=== PATIENT | female | born 1995 | race Caucasian/White ===

== ENCOUNTER 2020-10-27 19:23 | Emergency (ER) | payer OTHER, SELFPAY ==
--- NOTE | ~2020-10-27 | XR_ITS ---
XR chest 2V DATE: 10/27/2020 19:48 INDICATION: Shortness of breath for 4 days. Asthma. 21 week gravid patient. TECHNIQUE: PA and lateral views COMPARISON: None FINDINGS: There is minimal patchy infiltrate or atelectasis in the lower lung zones. No pleural effusion or pulmonary vascular congestion or pneumothorax. Normal heart size. No hilar or mediastinal enlargement. IMPRESSION: Minimal infiltrate or atelectasis at the lung bases Reviewed, dictated and finalized at location A.
[2020-10-27 19:30] VITALS: BP 103/58; PULSE 105; RESP 20; TEMP 36.3; O2SAT 99
--- NOTE | 2020-10-27 19:35 | ED.URI ---
HPI - URI/Sore Throat General Chief Complaint: Upper Respiratory Infection Stated Complaint: Covid Symptoms Time Seen by Provider: 10/27/20 19:35 Source: patient and RN notes reviewed History of Present Illness HPI Narrative: Patient is a 25-year-old female who presents the urgent care with complaints of Covid-like symptoms. Patient states that she is pretty sure her boyfriend had Covid starting last Saturday with his loss of taste and smell. Patient states that all 3 of her kids if showed very mild symptoms for only 1 or 2 days. Patient states that she became symptomatic a week ago yesterday and has become increased short of breath. Patient is 21 weeks and was suggested by her OB to go to the urgent care for a chest x-ray. Patient states that she is asthmatic and does not feel that she is having a asthma-like attacks . Patient states that she has been fine at rest but does seem to get short of breath on exertion. Patient also reports of a lot of fatigue and intermittent vomiting. States that she is able to get down fluids but has had a decrease in appetite. States that she has been using Tylenol for her fevers. No other acute complaints. No acute distress noted. Patient read the plan of care. Some parts of this dictation were generated by voice recognition software and may contain typographical and/or grammatical inaccuracies. Related Data Home Medications Medication Instructions Recorded Confirmed vit no.[id number] 1 tablet PO DAILY 10/27/20 10/27/20 [Alive ] Allergies Allergy/AdvReac Type Severity Reaction Status Date / Time No Known Allergies Allergy Verified 10/27/20 20:01 Review of Systems Review of Systems: CONSTITUTIONAL: Reports of fever, chills, sweats, fatigue EYES: Denies visual changes, redness, or discharge. ENT: Denies rhinorrhea, congestion, sore throat, or otalgia. CARDIOVASCULAR: Denies chest pain, palpitations, or edema. RESPIRATORY: Reports of nonproductive cough all week and shortness of breath on exertion GASTROINTESTINAL: Reports of nausea and vomiting GENITOURINARY: Denies dysuria or hematuria. SKIN: Denies rash or itching. MUSCULOSKELETAL: Denies back pain, joint pain, or myalgia. NEUROLOGIC: Denies headache, numbness, or weakness. All other systems reviewed are negative, except as documented in HPI. PMFSH Comments At the time of my signature, I reviewed and agree with the nursing past medical, surgical, social, and family history. There is no relevant family history pertinent to the patient complaint. Exam Narrative: GENERAL: This is a well-nourished, well-developed patient, in no apparent distress. HEAD: normocephalic, atraumatic. EYES: PERRL. Sclera clear/white. Vision is grossly intact. EARS: External ears normal NOSE: External nose normal with no obvious nasal discharge, nares without redness, no rhinorrhea. THROAT: Mucous membranes moist NECK: Neck supple CARDIOVASCULAR: Regular rate and rhythm without murmurs, gallops, or rubs. RESPIRATORY: Clear to auscultation. Slightly diminished right lower lobe SKIN: warm, intact with no suspicious lesions or rash, good texture and turgor. NEURO: awake, alert, and oriented to person, place and time. There were no obvious focal neurologic abnormalities. EXTREMITIES: No clubbing, cyanosis, or edema. Course Vital Signs Vital signs: Vital Signs Temperature 97.3 F L 10/27/20 19:30 Pulse Rate 105 H 10/27/20 19:30 Respiratory Rate 20 10/27/20 19:30 Blood Pressure 103/58 L 10/27/20 19:30 Pulse Oximetry 99 10/27/20 19:30 Temperature 97.3 F L 10/27/20 19:30 Pulse Rate 105 H 10/27/20 19:30 Respiratory Rate 20 10/27/20 19:30 Blood Pressure 103/58 L 10/27/20 19:30 Pulse Oximetry 99 10/27/20 19:30 Reviewed MDM - URI/Sore Throat MDM Narrative Medical decision making narrative: Reviewed lab results with the patient. She is aware that she is Covid positive on her rapid Covid test. He
== END 2020-10-27 20:05 | disposition home or self-care (01) ==
PROVIDERS: Emergency Provider Nurse Practitioner Family
DX: U07.1 COVID-19 (principal); J45.909 Unspecified asthma, uncomplicated
CPT/HCPCS: 71046; 87426; 99213; C9803; G0463

== ENCOUNTER 2021-11-27 00:13 | Day surgery (SDC) | payer OTHER, SELFPAY ==
[2021-11-23 14:54] VITALS: BMI 21.9
--- NOTE | 2021-11-23 15:03 | SUR.PREOP ---
Report to the Outpatient Waiting Room, entrance under the green pavilion located off [facility], at time 0630 on date 11/27/21. OR Time: 0830. Time changes happen often and if your time is changed the preop area will call you the afternoon before. - You and your visitor will be asked to self-screen and do not enter if you have any COVID symptoms. - Only one visitor and NO children visitors are allowed at this time. - The patient visitor is requested to leave or wait in car when not with patient due to restrictions. - A mask is required within the hospital. Patients may have clear liquids (water, carbonated beverages, clear teas, apple juice) until 3 hours prior to surgery with a maximum of 20 ounces. - No food from midnight until time of surgery BEFORE 0530 AM - Infants may have breast milk until 4 hours before surgery, infant formula 6 hours prior to surgery. - Children will be allowed to drink immediately following surgery. If applicable, please bring a bottle or sippy cup to assist with drinking. Juice, water, soda, and popsicles are readily available. For infants on formula, please bring formula the day of surgery. Pacifiers are allowed. Take the following medications with a SIP of water the morning of surgery: ____N/A Medications to discontinue per physician N/A Date to take last dose Please no make-up, nail montserratian, hairspray, perfume, deodorant, or body powder the day of surgery. No jewelry (including any body piercings) or valuables the day of surgery, leave them at home. Please take a shower or bath the night before, or the morning of, surgery with an antibacterial soap. Wear comfortable, loose fitting clothing. Children are encouraged to wear pajamas. - Jewelry must be removed prior to entering the operating room. Rings and piercings that are not removed may be cut off. - The hospital will not accept responsibility for valuables. - Please leave all valuables, including medications, at home the day of surgery. If you are going home after surgery, a licensed moving van driver must drive you home. - NO public transportation without another adult. - We recommend that an adult stay with you for 24 hours following discharge. - We also recommend that you do not drive, make important decision, drink alcoholic beverages, or take any drugs that were not prescribed by your health care provider for at least 24 hours after your discharge time. For Pediatric surgeries, we recommend two adults accompany the child home (only one inside the building at this time). Follow any additional instructions given to you from your surgeon. If you or anyone in your household have experienced Covid symptoms in the past week, please notify your surgeon or the nurse liaison at the phone number below for possible testing. Telephone instructions given to PATIENT and asked if any additional questions and then verbalized understanding. Patient advised to call surgeon office or pre surgery nurse liaison [phone] if any additional questions.
[2021-11-27] VITALS (7 sets, daily range): BP systolic 101–133; BP diastolic 58–89; PULSE 52–102; RESP 16–20; TEMP 36.3–36.7; O2SAT 99–100
--- NOTE | 2021-11-27 07:25 | PM.IMHP ---
H&P: HPI History of Present Illness Date/Time: 11/27/21 07:25 Chief Complaint: sterilization Narrative: Didi is a who presents for LSC bilateral salpingectomy. She is certain she has completed her childbearing. Review of Systems Review of Systems: All systems reviewed & are unremarkable except as noted in HPI and below PMFSH Family History Family History (System 05/11/21 @ 16:23 by Nella Vargas) Grandparent Breast cancer in male Breast cancer in female Prostate carcinoma Diabetes mellitus Hypertension Acute myocardial infarction Lung cancer Agent orange exposure Father Kidney failure Hypertension Mother Hypertension Other Patient's mother is Social History Social History (System 05/11/21 @ 16:23 by Nella Vargas) Substance use: former Substance use type: marijuana Other substance usage details: DOES NOT USE ON A DAILY BASIS Last use: SEPTEMBER 2020 Living arrangements: with family Spiritual care concerns: No Meds Home Medications and Allergies Home Medications Medication Instructions Recorded Confirmed Type albuterol sulfate 90 mcg/actuation 2 puff inhalation QID PRN 11/23/21 11/23/21 History aerosol inhaler Shortness Of Breath Allergies Allergy/AdvReac Type Severity Reaction Status Date / Time No Known Allergies Allergy Verified 05/11/21 16:23 Exam Const: General: no acute distress Resp: Effort & Inspection: normal respiratory effort Auscultation: clear to auscultation bilaterally Cardio: Rate: regular rate Rhythm: regular rhythm GI: GI Palp: Yes Soft to palpation Extrem: General: normal to inspection Assessment and Plan Assessment and plan (1) Request for sterilization: Code(s): Z30.2 - Encounter for sterilization Status: Acute Plan Discussed RBA of LSC bilateral salpingectomy, consented. Will proceed. ancef prior
[2021-11-27] MEDS: LACTATED RINGERS 1,000 ML 30 ML IV CONT ×2 (07:45→10:10)
[2021-11-27] MEDS: KETOROLAC 15 MG/ML VIAL (*BKC) IV PUSH (08:00)
[2021-11-27] MEDS: ACETAMINOPHEN 500 MG TABLET 1000 MG PO (08:00)
[2021-11-27] MEDS: SCOPOLAMINE 1.5 MG PATCH TRANSDERM (08:10)
--- NOTE | 2021-11-27 08:11 | WPDANESEPPF ---
Anes - Initial Pre Proc Eval Procedure: Operation Date: 11/27/21 09:00 Proposed Procedures p Laparoscopic Bilateral Salpingectomy - Janie Alexander MD Date/Time: 11/27/21 08:11 Surgeon: Janie Alexander MD Pre Op Diagnosis: desires sterilization Patient Data Age: 26 Gender: F Height: 1.8 m Weight: 75 kg Last Vital Signs Temp 36.7 C 11/27/21 07:30 Pulse 77 11/27/21 07:30 Resp 16 11/27/21 07:30 BP 133/79 11/27/21 07:30 Pulse Ox 100 11/27/21 07:30 O2 Del Method Room Air 11/27/21 07:30 Allergies Allergy/AdvReac Type Severity Reaction Status Date / Time No Known Allergies Allergy Verified 11/27/21 07:49 Home Medications Medication Instructions Recorded Confirmed Type albuterol sulfate 90 mcg/actuation 2 puff inhalation QID PRN 11/23/21 11/27/21 History aerosol inhaler Shortness Of Breath Patient hx anesthesia problems: post op nausea/vomiting Family hx anesthesia problems: none Results Review: All pre-operative results and documents have been reviewed as part of the pre-operative evaluation. [facility] Past Medical History Medical History Anxiety Asthma Celiac disease Hx of migraines PTSD (post-traumatic stress disorder) Family History Family History Grandparent Breast cancer in male Breast cancer in female Prostate carcinoma Diabetes mellitus Hypertension Acute myocardial infarction Lung cancer Agent orange exposure Father Kidney failure Hypertension Mother Hypertension Other Patient's mother is Social History Social History Substance use: former Substance use type: marijuana Other substance usage details: DOES NOT USE ON A DAILY BASIS Last use: SEPTEMBER 2020 Living arrangements: with family Spiritual care concerns: No Anes - Eval Final PreProcedure Day of Procedure 11/27/21 08:11 Patient weight: normal Heart: regular rate and rhythm Lungs: clear to auscultation Airway: Mallampati scale class II Neurological: alert and oriented Last oral intake: >/= 8 hours ASA classification: III Emergent: no Anesthetic plan: proceed Anesthesia type and monitoring: general ETT and standard monitoring Results Review: All pre-operative results and documents have been reviewed as part of the pre-operative evaluation. Informed Consent: The patient's anesthetic plan and its attendant risks and benefits were discussed with the patient/family/POA. Questions were solicited and answers provided to the satisfaction of the patient/family/POA.
--- NOTE | 2021-11-27 09:05 | WPDHPUPDATE1 ---
History and Physical Update Update Date/Time: 11/27/21 09:05 History and Physical has been reviewed, including an updated exam of the patient. There are NO changes in the patient's condition. Risks, benefits, and alternatives have been discussed and questions answered. Patient agrees to proceed with procedure.
[2021-11-27] MEDS: ceFAZolin 2 GM/D5W 50 ML 2 GM/50 ML BAG IVPB (09:10)
[2021-11-27] MEDS: BUPIVACAINE/EPINEPHRINE 0.25% 50 ML VIAL 10 ML INFILTRATE (09:25)
--- NOTE | 2021-11-27 10:03 | W.PM.PROC2 ---
Procedure Note - Detailed Date of Procedure 11/27/21 Pre-op Diagnosis desires sterilization Post-op Diagnosis Same Procedure Performed Laparoscopic Bilateral Salpingectomy Surgeon Janie Alexander MD Anesthesia General Indications undesired future fertility Description of Procedure The patient was taken to the OR and placed in dorthal lithotomy in [facility]. She received general anesthesia. A speculum was placed and the cervix grasped with a single tooth tenaculum and an acorn uterine manipulator placed easily. A beckett catheter had previously been placed. She had received preoperative antibiotics. A 5mm subumbilical skin incision was made and using direct visualization, the trocar was inserted intraperitoneally. The abdomen was insufflated and the pelvis inspected with the above findings. Bilateral 5mm incisions were made and trocars were placed under direct visualization. The right tube was grasped and elevated and using the Ligasure device, the tube was sequentially cauterized and ligated and removed through the trocar and sent to pathology. Similarly, on the left, the tube was removed using the Ligasure device. Hemostasis was noted. The upper abdomen was inspected and noted to be normal. The trocars were removed and the Co2 was removed from the abdomen. The skin was closed with 4-0 vicryl and steri strips. The patient tolerated the procedure well and was taken to the recovery room in stable condition. EBL 10cc. Estimated Blood Loss 10 IV Fluids 1,200 Drains No Packing No Pathology Yes Complications No immediate complications Condition Stable Disposition Same day
[2021-11-27] MEDS: oxyCODONE HCL (*CRX) 5 MG TAB IR PO (11:09)
== END 2021-11-27 11:51 | disposition home or self-care (01) ==
PROVIDERS: Visit Provider Obstetrics & Gynecology
PROC: (CPT 49320; principal; 2021-11-27 09:00)
DX: Z30.2 Encounter for sterilization (principal); J45.909 Unspecified asthma, uncomplicated; Z79.51 Long term (current) use of inhaled steroids; F12.90 Cannabis use, unspecified, uncomplicated
CPT/HCPCS: 58661; 88302; A9270; J0690; J1100; J1885; J2250; J2405; J2704; J2710; J3010; J7030; J7120

== ENCOUNTER 2023-03-20 17:20 | Outpatient (CLI) | payer OTHER, SELFPAY ==
--- NOTE | ~2023-03-20 | XR_ITS ---
EXAMINATION: XR knee RT min 4V DATE: 03/20/2023 17:45 INDICATION: Right knee pain. TECHNIQUE: 4 views of right knee were obtained. COMPARISON: None. FINDINGS: Bone alignment is normal. No fracture. Joint spaces are normal. No knee joint effusion. IMPRESSION: 1. Normal right knee. Reviewed, dictated and finalized at location E. [employer] IMPRESSION: 1. Normal right knee.
== END 2023-03-20 17:21 | disposition home or self-care (01) ==
LOC: ANHIMG 17:23
PROVIDERS: PCP Physician Assistant; Visit Provider Physician Assistant
DX: M25.561 Pain in right knee (principal)
CPT/HCPCS: 73564

== ENCOUNTER 2023-10-29 09:01 | Outpatient (CLI) | payer OTHER, SELFPAY ==
--- NOTE | ~2023-10-29 | US_ITS ---
US breast LT limited 10/29/2023 09:31 Indication: Palpable left breast abnormality Procedure: High-resolution Limited ultrasound of the left breast Comparison: No prior studies for comparison. Findings: At 12:00, 5 cm from the nipple there is a cluster of hypoechoic oval masses without posteri or features or internal vascularity, likely focally dilated ducts or clustered cysts. Impression: 1: Probable benign oval hypoechoic left breast masses at 12:00, 5 cm from the nipple. BI-RADS CATEGORY 3-PROBABLY BENIGN FINDING RECOMMENDATION: 6 month follow-up Limited left breast ultrasound recommended. Reviewed, dictated and finalized at location B. Impression: 1: Probable benign oval hypoechoic left breast masses at 12:00, 5 cm from the n ipple. BI-RADS CATEGORY 3-PROBABLY BENIGN FINDING RECOMMENDATION: 6 month follow-up Limited left breast ultrasound recommended.
== END 2023-10-29 09:02 | disposition home or self-care (01) ==
PROVIDERS: PCP Physician Assistant; Visit Provider Advanced Practice Midwife
DX: N63.20 Unspecified lump in the left breast, unspecified quadrant (principal)
CPT/HCPCS: 76642

== ENCOUNTER 2024-08-26 13:19 | Outpatient (CLI) | payer OTHER, SELFPAY ==
--- NOTE | ~2024-08-26 | MMUS_ITS ---
EXAMINATION: MM diagnostic alberto BI w estrella, US breast RT limited HISTORY: Left breast lump TECHNIQUE: 3-D tomosynthesis images of the breasts were performed and synthetic 2-D images were gener ated. CAD analysis was submitted and interpreted. High resolution limited left breast ultrasound was performed. COMPARISON: None BREAST PARENCHYMAL COMPOSITION:Dense: The breasts are heterogeneously dense, which may obscure small masses. FINDINGS: MAMMOGRAPHIC FINDINGS: No suspicious parenchymal abnormality seen. No mass lesion or distortion are evident. Upper left abbie st asymmetry effaces a spot compression. Punctate benign-appearing calcifications are present at the upper left breast. No suspicious masses or calcifications. ULTRASOUND: No significant abnormality seen in the region scanned sonographically. No solid or cystic lesion evid ent. IMPRESSION: No evidence for malignancy. No mammographic or sonographic correlate seen at the area of clinical co ncern in the left breast, aside from possible focal dense fibroglandular tissue. BI-RADS Category 2: Benign finding(s). Reviewed, dictated and finalized at [facility]. IMPRESSION: No evidence for malignancy. No mammographic or sonographic correlate seen at [facility] area of clinical concern in the left breast, aside from possible focal dense fibroglandular tissue. BI-RADS Category 2: Benign finding(s).
== END 2024-08-26 13:20 | disposition home or self-care (01) ==
LOC: ANHIMG 13:22
PROVIDERS: PCP Physician Assistant
DX: R92.8 Other abnormal and inconclusive findings on diagnostic imaging of breast (principal); N63.0 Unspecified lump in unspecified breast
CPT/HCPCS: 76642; 77062; 77066; G0279